=== PATIENT | female | born 1950 | race Caucasian/White ===

== ENCOUNTER 2020-02-12 07:54 | Outpatient (CLI) | payer MEDICARE, SELFPAY ==
--- NOTE | ~2020-02-12 | MM_ITS ---
EXAMINATION: MM screening kerry BI w suraj HISTORY: Screening mammogram, family history of breast cancer in her mother. TECHNIQUE: Craniocaudal and mediolateral oblique 3-D tomosynthesis images were obtained and synthetic 2-D images were generated. CAD analysis was submitted and interpreted. COMPARISON: 07/22/2018 BREAST PARENCHYMAL COMPOSITION: The breasts are almost entirely fatty. FINDINGS: Scattered benign-appearing calcifications are present. There is no evidence of suspicious m ass, calcification, or architectural distortion to suggest malignancy in either breast. There has bee n no suspicious interval change. IMPRESSION: 1. No mammographic evidence of malignancy. 2. Recommend routine screening mammography in one year. BI-RADS Category 2: Benign finding(s). Reviewed, dictated and finalized at location A.
--- NOTE | ~2020-02-12 | CT_ITS ---
EXAMINATION:CT lung screening DATE: 02/12/2020 08:16 INDICATION: Personal history of tobacco dependence. Current smoker with 53 pack year history. TECHNIQUE: Computed tomography (CT) of the chest was performed without intravenous contrast. Automate d exposure control and iterative reconstruction technique were employed. The dose-length product (DLP ) was 196.24 mGy-cm. COMPARISON: Chest CT 01/15/2018 FINDINGS: There are greater than 10 scattered pulmonary nodules bilaterally measuring up to 5 mm, sta ble from 01/15/2018. Calcified bilateral pulmonary nodules are consistent with old granulomatous disea se. No pleural effusion. The heart size is normal. There are coronary artery calcifications. No peric ardial effusion. Calcifications in the spleen are consistent with old granulomatous disease. There is severe thoracic spondylosis. IMPRESSION: 1. Lung-RADS category 2: Benign appearance or behavior. Continue annual screening with noncontrast lo w-dose chest CT in 12 months. Reviewed, dictated and finalized at location A. IMPRESSION: 1. Lung-RADS category 2: Benign appearance or behavior. Continue annual screeni ng with noncontrast low-dose chest CT in 12 months.
--- NOTE | ~2020-02-12 | US_ITS ---
EXAMINATION: US carotid duplex BI DATE: 02/12/2020 09:10 INDICATION: Carotid stenosis. TECHNIQUE: Grayscale, color Doppler, and pulsed Doppler images of the cervical carotid arteries were obtained. The degree of vessel stenosis is placed in one of the following categories: normal, <50%, 5 0-69%, >=70% but less than near-occlusion, near-occlusion, or total occlusion. Note that percent sten osis relative to normal distal artery lumen diameter is indirectly measured from velocity measurement s as described by Ramírez, et al. Radiology 2003; [id number]:[id number]. COMPARISON: Ultrasound 07/22/2018 FINDINGS: RIGHT: The right common carotid artery (CCA) peak systolic velocity (PSV) is 74 cm/s. The right internal car otid artery (ICA) PSV is 134 cm/s. The right ICA end-diastolic velocity (EDV) is 31 cm/s. The right I CA/CCA PSV ratio is 1.8. Grayscale and color Doppler images yield an estimate of <50% diameter reduct ion from plaque in the ICA. There is antegrade flow in the right vertebral artery. LEFT: The left CCA PSV is 75 cm/s. The left ICA PSV is 123 cm/s. The left ICA EDV is 26 cm/s. The left ICA/ CCA PSV ratio is 1.6. Grayscale and color Doppler images yield an estimate of <50% diameter reduction from plaque in the ICA. There is antegrade flow in the left vertebral artery. IMPRESSION: 1. <50% stenosis in the right internal carotid artery. 2. <50% stenosis in the left internal carotid artery. Reviewed, dictated and finalized at location A.
== END 2020-02-12 07:55 | disposition home or self-care (01) ==
PROVIDERS: PCP Internal Medicine; Visit Provider Internal Medicine
DX: Z12.2 Encounter for screening for malignant neoplasm of respiratory organs (principal); Z87.891 Personal history of nicotine dependence; Z12.31 Encounter for screening mammogram for malignant neoplasm of breast; I65.23 Occlusion and stenosis of bilateral carotid arteries
CPT/HCPCS: 77063; 77067; 93880; G0297

== ENCOUNTER 2020-05-31 14:28 | Outpatient (CLI) | payer MEDICARE, SELFPAY ==
--- NOTE | ~2020-05-31 | XR_ITS ---
EXAMINATION: XR chest 2V DATE: 05/31/2020 15:15 INDICATION: COPD TECHNIQUE: PA and lateral views of the chest were obtained. COMPARISON: Chest radiograph dated 09/07/[address] dated 02/12/2020 FINDINGS: Mild hyperexpansion of lungs with partial flattening of the diaphragm. Heterotopic ossicle at the rig ht breast which projects over the right lower lung zone. No airspace opacities, pulmonary edema, pleu ral effusion or pneumothorax. The cardiomediastinal silhouette is normal. Moderate thoracic and sever e lumbar spondylosis with bridging osteophytes at multiple levels consistent with diffuse idiopathic skeletal hyperostosis (DISH). IMPRESSION: 1. Mild hyperexpansion of the clear lungs consistent with given history of COPD. Reviewed, dictated and finalized at location B. IMPRESSION: 1. Mild hyperexpansion of the clear lungs consistent with given history of COPD .
[2020-05-31 15:00] LABS: Basophils Absolute Auto 0.04 K/mm3 (0.00-0.10); Basophils Percent Auto 0.4 % (0.0-1.0); Eosinophils Absolute Auto 0.09 K/mm3 (0.02-0.50); Eosinophils Percent Auto 0.8 % (1.0-6.0); Hematocrit 30.7 % (35.0-42.0); Hemoglobin 9.9 g/dL (11.7-13.8); Immature Granulocyte Absolute 0.05 K/mm3 (0.00-0.00); Immature Granulocyte Percent A 0.5 % (0.0-0.0); Lymphocytes Absolute Auto 2.48 K/mm3 (1.10-4.50); Lymphocytes Percent Auto 23.3 % (18.0-42.0); Mean Corpuscular HGB Conc 32.2 g/dL (32.0-36.0); Mean Corpuscular Hemoglobin 31.6 pg (27.0-31.0); Mean Corpuscular Volume 98.1 fL (78.0-102.0); Mean Platelet Volume 9.9 fl (9.2-11.8); Monocytes Percent Auto 7.5 % (2.0-11.0); Neutrophils Absolute Auto 7.2 K/mm3 (1.7-7.2); Neutrophils Percent Auto 67.5 % (50.0-70.0); Platelet Count Result 361 K/mm3 (150-420); Red Blood Count 3.13 M/mm3 (4.20-5.40); Red Cell Distribution Width 14.8 % (11.6-14.4); White Blood Count 10.7 K/mm3 (4.8-10.8)
[2020-05-31 15:04] LABS: Add Urine Microscopic? YES; Appearance Urine Sl Cloudy (Clear); Bilirubin Urine Negative (Negative); Blood Urine Negative (Negative); Color Urine Yellow (Yellow); Glucose Urine UA 2+ (Negative); Ketones Urine Negative (Negative); Leukocyte Esterase Ur Negative (Negative); Nitrate Urine Positive (Negative); Protein Urine Trace (Negative)
[2020-05-31 15:08] LABS: RBC Urine None seen /hpf (0-2)
[2020-05-31 15:09] LABS: Bacteria Urine 1+ /hpf; Squamous Epithelial Cell Urine Moderate /hpf (Few); WBC Urine 0-3 /hpf (0-3)
[2020-05-31 15:36] LABS: Hemoglobin A1C 6.6 % (<5.7)
[2020-05-31 16:04] LABS: Alanine Aminotransferase 17 U/L (14-59); Albumin Level 3.2 g/dL (3.4-5.0); Alkaline Phosphatase 91 U/L (46-116); Anion Gap 11 mmol/L (8-16); Aspartate Amino Transferase 15 U/L (15-37); Bilirubin,Total 0.3 mg/dL (0.00-1.00); Blood Urea Nitrogen 31 mg/dL (7-18); Calcium 9.4 mg/dL (8.5-10.1); Carbon Dioxide 31 mmol/L (21-32); Chloride 99 mmol/L (98-108); Estimated Glomerular Filt Rate 51; Free T3 2.66 pg/mL (2.18-3.98); Free T4 Free Thyroxine 1.22 ng/dL (0.76-1.46); Glucose 218 mg/dL (70-99); Osmolality Calculated 305 mOsm/kg (285-295); Potassium 3.2 mmol/L (3.5-5.1); Sodium 141 mmol/L (136-145); Thyroid Stimulating Hormone 0.78 uIU/mL (0.36-3.74); Total Protein 6.5 g/dL (6.4-8.2); Vitamin B12 443 pg/mL (193-986)
== END 2020-05-31 14:29 | disposition home or self-care (01) ==
LOC: CHSLAB 14:31
PROVIDERS: PCP Internal Medicine; Visit Provider Internal Medicine
DX: J44.1 Chronic obstructive pulmonary disease with (acute) exacerbation (principal); R41.3 Other amnesia; E11.9 Type 2 diabetes mellitus without complications; E53.8 Deficiency of other specified B group vitamins; R31.9 Hematuria, unspecified
CPT/HCPCS: 36415; 71046; 80053; 81001; 82607; 83036; 84439; 84443; 84481; 85025; 86038; 87086; 87088; 88108

== ENCOUNTER 2022-03-14 09:55 | Outpatient (CLI) | payer OTHER, SELFPAY ==
--- NOTE | ~2022-03-14 | CT_ITS ---
EXAMINATION: CT lung screening DATE: 03/14/2022 10:20 INDICATION: Smoker. COPD. TECHNIQUE: Computed tomography (CT) of the chest was performed without intravenous contrast. The dose -length product was 241.79 mGy-cm. Automated exposure control and iterative reconstruction technique were employed. COMPARISON: CT dated 02/12/2020 FINDINGS: There is a 4 mm right lower lobe nodule, image 73. There is a 4 mm pleural-based right lowe r lobe nodule, image 69. There is a 4 mm right middle lobe nodule, image 64. There is a. Fissural nod ule on the left measuring up to 5 mm with a linear configuration on axial images. There are additiona l scattered small nodules in both lungs measuring 3 mm or less. No new or growing pulmonary nodules. No thoracic lymphadenopathy. Heart size normal. No significant pleural or pericardial effusion. No en dobronchial lesions. No pneumothorax. No focal airspace consolidation. Moderate thoracic spondylosis. IMPRESSION: 1. Lung-RADS category 2: Benign appearance or behavior. Continue annual screening with noncontrast lo w-dose chest CT in 12 months. Reviewed, dictated and finalized at location A. IMPRESSION: 1. Lung-RADS category 2: Benign appearance or behavior. Continue annual screeni ng with noncontrast low-dose chest CT in 12 months.
== END 2022-03-14 09:56 | disposition home or self-care (01) ==
PROVIDERS: PCP Internal Medicine; Visit Provider Internal Medicine
DX: Z12.2 Encounter for screening for malignant neoplasm of respiratory organs (principal); F17.210 Nicotine dependence, cigarettes, uncomplicated
CPT/HCPCS: 71271